=== PATIENT | male | born 1975 | race Caucasian/White ===

== ENCOUNTER 2017-09-24 20:33 | Inpatient (IN) | payer OTHER ==
[~2017-09-24] VITALS: Ht 172.7 cm; Wt 113.6 kg
[~2017-09-24 20:33] MED LIST: AMOXICILLIN500 M3 PO; ATIVAN1 MG PO; BENTYL20 MG PO; CIPRODEX OTIC7.5 ML OT; CLEOCIN HCL300 MG PO; CLONIDINE HCL0.1 MG PO; DEBROX15 ML OTIC; METHADONE10 MG/5 ML PO; METHADONE5 MG PO; MOTRIN800 MG PO; MOVANTIK25 MG PO; NICORELIEF2 MG PO; OXYCODONE HCL10 M2 PO; PERCOCET 325 MG1 TA2 PO; PRILOSEC OTC20 MG PO; TRAZODONE HCL50 M1 PO; XANAX0.5 MG PO; XANAX2 MG PO; ZOFRAN ODT4 MG PO
--- NOTE | 2017-09-24 21:15 | ED PSYCHIATRIC COMPLAINT ---
See Addendum History of Present Illness General Chief Complaint: Psychiatric Related Complaint Stated Complaint: DEPRESSION,+SI Source: patient, old records Exam Limitations: no limitations Vital Signs & Intake/Output Vital Signs & Intake/Output Vital Signs Date Time Temp Pulse Resp B/P B/P Pulse O2 O2 Flow FiO2 Mean Ox Delivery Rate 09/25 0310 97.0 85 16 100/66 95 09/25 0005 96.8 86 16 105/68 95 09/24 2047 95.5 90 18 103/71 96 Room Air ED Intake and Output 09/25 0000 09/24 1200 Intake Total 120 Output Total Balance 120 Intake, Oral 120 Patient 250 lb Weight Weight Reported by Patient Measurement Method Allergies Coded Allergies: NO KNOWN ALLERGIES (11/09/15) Reconcile Medications Clonidine HCl 0.1 MG TABLET 2 TAB PO Q8 OPIATE WITHDRAWAL 2 TAB PO 3X/DAY FOR 1 DAY THEN 1 TAB PO 3X/DAY FOR 1 DAY Clonidine HCl 0.1 MG TABLET 0.1 MG PO SEE ADMIN CRITERIA opiate withdrawal 1 po tid x 2 days then 1 po bid x 2 days then 1 po daily x 2 days then off. Nicotine (Nicorelief) 2 MG GUM 2 MG PO Q2P PRN nicotine craving Oxycodone HCl 10 MG TABLET 10 MG PO Q6-PRN PRN PAIN SCALE 7-10 (SEVERE) Trazodone HCl 50 MG TABLET 50 MG PO AT BEDTIME PRN INSOMNIA Triage Note: PT FROM HOME C/O +SI PER PT. PT STATES THAT A LOT HAS BEEN HAPPENING IN HIS LIFE CURRENTLY, PT IS ON WORK COMP AND WOULD LIKE TO WORK, BEGAN METHADONE 1 WEEKS PRIOR AND EVER SINCE BEING ON METHADONE PT FEELS DEPRESSED AND +SI WITH CRAZY THOUGHTS PER PT. PT STATES HE HAS BEEN OFF METHADONE FOR 2 DAYS AND WOULD LIKE TO BE OFF PERMANENTLY. PT STATES THAT "I PLANNED TO JUMP OFF A BRIDGE, I REALLY DONT LIKE TO DISCUSS IT THERE ARE MANY THINGS I WOULD DO TO HARM MYSELF" "I HAVE BEEN HERE BEFORE FOR THE HELP AND LAST TIME I LEFT, I THINK THINK THIS TIME I NEED MEDICATION AND HELP" PTS VSS. Triage Nurses Notes Reviewed? yes Onset: Just prior to arrival Duration: constant, continues in ED, getting worse Timing: recent history Severity: moderate, severe Associated Symptoms: anxiety, impaired concentration, suicidal ideation HPI: Over the last week the patient reports increasing anxiety depression sadness insomnia anorexia with thoughts of suicide. He admits to methadone use and sniffing heroin. He does not feel safe at home. He denies fever chills nausea vomiting diarrhea abdominal pain chest pain shortness breath headache dysuria rash bleeding homicidal ideation hallucination. (Nirav Carney MD) Past History Travel History Traveled to [place] past 21 day No Medical History Any Pertinent Medical History? 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 History of MRSA: No History of VRE: No History of CDIFF: No Isolation History: Standard Surgical History Surgical History: 01/30 RT LEG/PRIOR LT ANKLE ORTHOPEDIC SURGERY he has had right knee arthroscopic surgery and left ankle surgery in 2002 (right knee arthroscopy ) Psychosocial History Who do you live with Patient/Self Services at Home None What is your primary language Greek Tobacco Use: Current Daily Use Daily Tobacco Use Amount/Type: => 5 Cigarettes daily ETOH Use: denies use Illicit Drug Use: denies illicit drug use Family History Family History, If Any: FATHER (PROSTATE CANCER). . MOTHER (BREAST CANCER). . Relation not specified for: FH: breast cancer FH: HTN (hypertension) Hx Contributory? No (Nirav Carney MD) Review of Systems Review of Systems Constitutional: Reports: no symptoms. EENTM: Reports: no symptoms. Respiratory: Reports: no symptoms. Cardiovascular: Reports: no symptoms. GI: Reports: no symptoms. Genitourinary: Reports: no symptoms. Musculoskeletal: Reports: no symptoms. Skin: Reports: no symptoms. Neurological/Psychological: Reports: see HPI, anxiety, depressed. Hematologic/Endocrine: Reports: no symptoms. Immunologic/Allergic: Reports: no symptoms. All Other Systems: Reviewed and Negative (Nirav Carney MD) Physical Exam Physical Exam General Appearance: well developed/nourished, alert, awake, anxious, mild distress, obese Head: atraumatic, normal appearance Eyes: Bilateral: normal appearance, PERRL, EOMI. Ears, Nose, Throat: normal pharynx, normal ENT inspection, hearing grossly normal Neck: normal inspection, supple, full range of motion, no midline tenderness Respiratory: normal breath sounds Cardiovascular: regular rate/rhythm Gastrointestinal: soft, non-tender Extremities: normal range of motion Neurological/Psychiatric: no motor/sensory deficits, awake, agitated, alert, anxious, penal officer II-XII nml as tested, depressed affect, oriented x 3 Appearance/Memory/Insight: impaired insight Behavoir/Eye Contact/Speech: cooperative, normal speech Thoughts/Hallucinations: no apparent hallucination Skin: intact, normal color, warm/dry SAD PERSONS SAD PERSONS Response Value Male Sex? yes 1 Depression/Hopelessness? yes 2 Previous Attempts/Psych Care yes 1 Excessive Ethanol/Drug Use? yes 1 Rational Thinking Loss? yes 2 Single//? yes 1 Social Support? has support 0 Stated Future Intent? yes 2 Total 10 SAD PERSONS Done? yes (Angelika NUNN,Nirav) Progress Differential Diagnosis: drug intoxication, drug overdose, drug withdrawal, electrolyte abnormality, hypoglycemia Plan of Care: Orders Procedure Date/time Status Regular Diet 09/25 B Active Continuous Observation Monitor 09/25 0440 Active Continuous Observation Monitor 09/25 0040 Active Continuous Observation Monitor 09/24 2044 Active URINE DRUG SCREEN FOR ER ONLY 09/24 2044 Complete URINALYSIS 09/24 2044 Complete ETHANOL 09/24 2044 Complete COMPREHENSIVE METABOLIC PANEL 09/24 2044 Complete CBC WITHOUT DIFFERENTIAL 09/24 2044 Complete ED CRISIS PSYCH CONSULT 09/24 2044 Active Current Medications Sig/Mallorie Start time Last Medication Dose Stop Time Status Admin Trazodone HCl 50 MG AT BEDTIME 09/25 2100 UNVr (Desyrel) Alprazolam 1 MG BID PRN 09/24 2345 UNVr 09/24 (Xanax) 10/01 234 2344 Clonidine 0.1 MG TID 09/24 2328 UNVr 09/24 (Catapres) 2344 Gabapentin 300 MG Q8 09/25 2327 UNVr 09/25 (Neurontin) 0630 Laboratory Tests 09/24/172124: Serum Alcohol < 10.0 09/24/172124: Anion Gap 14, Estimated GFR > 60, BUN/Creatinine Ratio 20.0, Glucose 105 H, Calcium 9.6, Total Bilirubin 0.4, AST 15 L, ALT 28, Alkaline Phosphatase 78, Total Protein 7.3, Albumin 4.5, Globulin 2.8, Albumin/Globulin Ratio 1.6, CBC w Diff NO MAN DIFF REQ, RBC 5.13, MCV 87.4, MCH 29.9, MCHC 34.2, RDW 14.1, MPV 9.6 , Gran % 56.7, Lymphocytes % 35.6, Monocytes % 5.3, Eosinophils % 1.7, Basophils % 0.7, Absolute Granulocytes 6.4, Absolute Lymphocytes 4.0 H, Absolute Monocytes 0.6, Absolute Eosinophils 0.2, Absolute Basophils 0.1, Urine Opiates Screen > 4000.00 H, Methadone Screen > 735 H, Barbiturate Screen < 60, Ur Phencyclidine Scrn < 6.00, Amphetamines Screen 107, U Benzodiazepines Scrn < 85, Urine Cocaine Screen < 50, Urine Cannabis Screen 6.10, Urine Color YEL, Urine Clarity CLEAR, Urine pH 6.0, Ur Specific [place] >= 1.030, Urine Protein NEG, Urine Ketones NEG, Urine Nitrite NEG, Urine Bilirubin NEG, Urine Urobilinogen 0.2, Ur Leukocyte Esterase NEG, Ur Microscopic EXAM NOT REQUIRED, Urine Hemoglobin NEG, Urine Glucose NEG Hand-Off Endorsed To: Diane NUNN,Chris Marcos Endorsed Time: 0700 Pending: consult (Nirav Carney MD) Comments: 09/25/2017 7:32:25 AM patient signed out to me by Dr. Carney at shift change consultant. (Diane NUNN,Chris Marcos) Departure Departure Disposition: STILL A PATIENT Condition: Stable Clinical Impression Primary Impression: Depression with suicidal ideation Secondary Impressions: Opiate abuse, continuous Referrals: Patient Has No Primary Care Dr (PCP/Family) Departure Forms: Customer Survey General Discharge Information (Nirav Carney MD)
[2017-09-24 21:34] LABS: ABSOLUTE BASOPHIL COUNT 0.1 /CUMM (0.0-0.2); ABSOLUTE EOSINOPHIL COUNT 0.2 /CUMM (0.0-0.7); ABSOLUTE GRANULOCYTE CT 6.4 /CUMM (1.4-6.5); ABSOLUTE MONOCYTE COUNT 0.6 /CUMM (0.10-0.60); BASOPHIL % 0.7 % (0.0-2.0); EOSINOPHIL % 1.7 % (0-5); GRANULOCYTE % 56.7 % (42.2-75.2); HEMATOCRIT 44.8 % (42-52); MEAN CORPUSCULAR HGB 29.9 PG (27.0-31.0); MEAN CORPUSCULAR HGB CONC 34.2 G/DL (33.0-37.0); MEAN CORPUSCULAR VOLUME 87.4 FL (80.0-94.0); MEAN PLATELET VOLUME 9.6 FL (7.4-10.4); PLATELET COUNT 221 /CUMM (130-400); RBC DISTRIBUTION WIDTH 14.1 % (11.5-14.5); RED BLOOD CELL CT 5.13 /CUMM (4.70-6.10); WHITE BLOOD CELL COUNT 11.4 /CUMM (4.8-10.8)
--- NOTE | 2017-09-25 10:09 | ED PSYCH CRISIS CONSULTATION ---
See Addendum Crisis Consult Basic Assessment Date of Consult: 09/25/17 Responsible Person/Accompanied By: self Insurance Authorization: Insurance #1: Insurance name: STEFANIA ELLSWORTH Phone number: Policy number: [id number] Group number: Authorization number: ED Provider: Patient's ED Provider: Nirav Carney MD Primary Care Physician: Patient's PCP: Patient Has No Primary Care Dr PCP's Phone Number: Current Psychiatrist: Provider in [place], unsure of name Chief Complaint: Psychiatric Related Complaint Patient's Quote: "Best way to end my problems is to end it." Present Illness: The pt is a single 41yo male brought in by a friend from due to depression, SI and heroin use. The pt presents alert, oriented, calm and cooperative with goal directed speech. The pt reports SI with intent to jump off a bridge near his apartment. The pt stated the best way to end all my problems is to end it. The pt reports a decrease in sleep, poor appetite and poor concentration. The pt denies HI, AH and VH. The pts toxicology screen is positive for methadone and opiates. The pt reports he was prescribed methadone by [facility] approximately 1 week ago but took his last dose 3 days ago. The pt stated he wants to come off all of his medication. The pt stated once he started the methadone his thoughts changes and he became suicidal. The pt also reports he continued to use heroin while taking the methadone. The pt stated he has been snorting 1-2 bundles per day. The pt is requesting inpatient admission. C-SSRS completed and placed in the pt's chart. The pt was discharged from [facility] 04/2017 after treatment for depression with SI. The pt stated after discharge he continued in and started seeing a provider 1x per month in [place]. The pt does not know the providers name and stated she is either a psychiatrist or EMBOSSING TOOLSETTER. The pt reports this provider prescribed him Xanax for anxiety. The pt reports he does not take the Xanax consistently and last took it approximately 1 month ago. The pt was last evaluated by [facility]rell Addison on 08/17/17 initially presenting with SI which he later recanted. The pt was discharged with information on outpatient resources. The pt reports he lives by himself and is alone most of each day. The pt reports a positive relationship with his children (ages 15 and 7) and their mother. The pt stated he has a long hx of Opiate use but was clean for 2 years before an injury at work January 2017. The pt reports he fell into a tank and broke his leg and ankle which required surgery. The pt stated he still cannot walk well and has significant pain from the injury. Pt's current presentation and hx discussed with Dr. Contreras, plan is for hospitalization. Pt stated he is in agreement with this plan. Pt aware no beds currently available at [facility], pt requested to not be transferred to another hospital. Patient's Address: [address] [place] [id number] Other Phone Number: Who Do You Live With? Patient/Self Family/Informants Interviewed: no family/collateral ID'd Allergies - Coded Allergies: NO KNOWN ALLERGIES (11/09/15) Current Medications - Scheduled Medications Clonidine HCl 0.1 MG TABLET 2 TAB PO Q8 OPIATE WITHDRAWAL #9 TAB Prescribed by Chris Contreras MD on 08/31/17 Clonidine HCl 0.1 MG TABLET 0.1 MG PO SEE ADMIN CRITERIA opiate withdrawal #12 TAB Prescribed by Chandler Baugh MD on 05/02/17 Scheduled PRN Medications Nicotine (Nicorelief) 2 MG GUM 2 MG PO Q2P PRN nicotine craving #100 GUM Prescribed by Chandler Baugh MD on 05/02/17 Oxycodone HCl 10 MG TABLET 10 MG PO Q6-PRN PRN PAIN SCALE 7-10 (SEVERE) #12 TAB Prescribed by Chandler Baugh MD on 05/02/17 Trazodone HCl 50 MG TABLET 50 MG PO AT BEDTIME PRN INSOMNIA #14 TAB Prescribed by Chandler Baugh MD on 05/02/17 Laboratory Results: Laboratory Tests 09/24/172124: Serum Alcohol < 10.0 09/24/172124: Anion Gap 14, Estimated GFR > 60, BUN/Creatinine Ratio 20.0, Glucose 105 H, Calcium 9.6, Total Bilirubin 0.4, AST 15 L, ALT 28, Alkaline Phosphatase 78, Total Protein 7.3, Albumin 4.5, Globulin 2.8, Albumin/Globulin Ratio 1.6, CBC w Diff NO MAN DIFF REQ, RBC 5.13, MCV 87.4, MCH 29.9, MCHC 34.2, RDW 14.1, MPV 9.6 , Gran % 56.7, Lymphocytes % 35.6, Monocytes % 5.3, Eosinophils % 1.7, Basophils % 0.7, Absolute Granulocytes 6.4, Absolute Lymphocytes 4.0 H, Absolute Monocytes 0.6, Absolute Eosinophils 0.2, Absolute Basophils 0.1, Urine Opiates Screen > 4000.00 H, Methadone Screen > 735 H, Barbiturate Screen < 60, Ur Phencyclidine Scrn < 6.00, Amphetamines Screen 107, U Benzodiazepines Scrn < 85, Urine Cocaine Screen < 50, Urine Cannabis Screen 6.10, Urine Color YEL, Urine Clarity CLEAR, Urine pH 6.0, Ur Specific [place] >= 1.030, Urine Protein NEG, Urine Ketones NEG, Urine Nitrite NEG, Urine Bilirubin NEG, Urine Urobilinogen 0.2, Ur Leukocyte Esterase NEG, Ur Microscopic EXAM NOT REQUIRED, Urine Hemoglobin NEG, Urine Glucose NEG Past History Past Medical History Neurological: NONE EENT: NONE Cardiovascular: hypertension Respiratory: NONE Gastrointestinal: pancreatitis Hepatic: NONE Renal: NONE Musculoskeletal: chronic back pain, disk herniation, H/O LT ANKLE SURG PAST Psychiatric: anxiety, depression, opioid dependence Endocrine: NONE Blood Disorders: NONE Cancer(s): NONE 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 Psychiatric Treatment History Psych Treatment Psychiatric Treatment Yes Inpatient Treatment Yes Outpatient Treatment Yes Location of Treatment [facility], unknown provider in [place]. Reason for Treatment depression, SI, Opiate Addiction Dates of Treatment [facility] 2017, [place] outpt provider [phone] Response to Treatment inconsistent Diagnosis by History: F32.9 Unspecified Depressive Disorder F41.9 Unspecified Anxiety D/O F11.20 Moderate Opiate Use D/O Substance Use/Abuse History Drug Use/Abuse Substances Used/Abused Yes Substance Used/Abused Heroin First Use pt reports in his "20's" Last Used 09/24/17 How much used/taken 1-2 bundles How often daily For how long long hx Route of use snort Substance Abuse Treatment Substance Abuse Treatment Past Substance Abuse TX Yes Inpatient Treatment Yes Outpatient Treatment Yes Location of Treatment [place] [facility], [facility] Reason for Treatment Opiate addiction Dates of Treatment long hx Response to Treatment inconsistent Current Mental Status Mental Status Orientation: Person, Place, Situation Affect: Sad Speech: WNL Neuro-vegetative: Anhedonia, Appetite Decreased, Concentration Poor, Energy Decreased, Helpless, Sleep Disturbance Appearance Appearance- Dress/Hygiene: appropriate Behaviors Thought Process: WNL Thought Content: WNL Memory: WNL Insight: Poor SI/HI Risk Assessment Past Suicidal Ideation/Attempts Yes Current Suicidal Ideation/Att Yes Past Homicidal Ideation/Att: No Current Homicidal Ideation/Attempts No Degree of Intent: Plan, States Intent Danger To: Self Gravely Disabled: Lack of Insight, Poor Impulse Control, Poor Judgment Risk Factors: access to lethal means, chronic/serious med cond., high anxiety/ distress, SA/MH hospitalized, substance abuse, poor impulse control, lack of outcome concern, lives alone, male, limited support Lethality Ratin PTSD Checklist PTSD Done? patient declined ED Management Sitter: Yes Restraints: No DSM5/PS Stressors/Medical Prob Diagnosis' (DSM 5, Stressors, Medical): F32.9 Unspecified Depressive Disorder F11.20 Opioid Use Disorder, Severe Current GAF: 29 Departure Disposition Psych Medical Clearance Date: 09/25/17 Medically Cleared at: 0800 Time Started: 0800 Time Ended: 844 Psychiatrist Consulted: Dr. Contreras Date Disposition Established: 09/25/17 Time Disposition Established: 944 Plan for Disposition - Modality: Bed Search Rationale for Disposition: Pt is a risk to himself and in need of hospitalization. Pt is in agreement with this plan. Type of IP Admission: Voluntary Referrals Patient Has No Primary Care Dr (PCP/Family)
[2017-09-25] MEDS ORDERED: ALPRAZOLAM1 M2 PO (15:00)
[2017-09-25] MEDS ORDERED: OXYCODONE-ACET1 EAC1 PO (15:01)
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
[2017-09-26 13:13] VITALS: BP 134/80
[2017-09-26 16:26] VITALS: BP 141/80
--- NOTE | 2017-09-26 19:57 | History & Physical ---
General Information and HPI MD Statement: I have seen and personally examined JV RODRIGES and documented this H&P. The patient is a 41 year old M who presented with a patient stated chief complaint of "best way to and my problems is to and". Source of Information: patient, family, old records Exam Limitations: unable to give history History of Present Illness: 41-year-old male was in the hospital for depression at the end of 2016, comes in with depression and suicidal ideations and he stated that a lot has been happening in my life, is on Workmen's Compensation would like to work again. Recently had his hardware taken out of his right ankle and still in pain. He began methadone a week ago and since then has been depressed and having suicidal ideations still in pain with his foot as been using heroine and suicidal ideations thinking of jumping off a bridge near his apartment, has not been sleeping well and his appetite is poor and has poor concentration Allergies/Medications Allergies: Coded Allergies: NO KNOWN ALLERGIES (NONE 09/26/17) Home Med list Alprazolam 1 MG TABLET 1 TAB PO BIDP PRN ANXIETY (Reported) Oxycodone HCl/Acetaminophen (Oxycodone-Acetaminophen 10-325) 10 MG-325 MG TABLET 1 TAB PO Q12H PRN PAIN (Reported) Compliance With Home Meds: UNKNOWN Past History Travel History Traveled to [place] past 21 day No Medical History Neurological: NONE EENT: NONE Cardiovascular: hypertension Respiratory: NONE Gastrointestinal: pancreatitis Hepatic: NONE Renal: NONE Musculoskeletal: chronic back pain, disk herniation, H/O LT ANKLE SURG PAST Psychiatric: anxiety, depression, opioid dependence Endocrine: NONE Blood Disorders: NONE Cancer(s): NONE PANEL MAKER/Reproductive: NONE Other Medical Hx: Hx facial otero. History of MRSA: No History of VRE: No History of CDIFF: No Isolation History: Standard Surgical History Surgical History: 01/30 RT LEG/PRIOR LT ANKLE ORTHOPEDIC SURGERY he has had right knee arthroscopic surgery and left ankle surgery in 2002 (right knee arthroscopy ) Past Family/Social History Family History Relations & Conditions if any FATHER (PROSTATE CANCER). . MOTHER (BREAST CANCER). . Relation not specified for: FH: breast cancer FH: HTN (hypertension) Psychosocial History Where do you live? Home Services at Home: None Primary Language: Arabic ETOH Use: denies use Illicit Drug Use: denies illicit drug use Functional Ability Ambulation: USING WHEELCHAIR AT PRESENT Review of Systems Review of Systems Constitutional: Reports: see HPI. Exam & Diagnostic Data Last 24 Hrs of Vital Signs/I&O Vital Signs Date Time Temp Pulse Resp B/P B/P Pulse O2 O2 Flow FiO2 Mean Ox Delivery Rate 09/26 1626 95 141/80 09/26 1458 98.6 75 14 134/80 09/26 1313 98.6 75 134/80 09/26 1232 98.1 70 14 114/75 99 Room Air 09/26 0933 68 120/80 09/26 0927 97.1 68 20 120/80 99 Room Air 09/26 0637 96.9 60 18 128/70 100 Room Air 09/25 2146 97.4 65 18 135/73 97 Room Air 09/25 2119 72 121/65 09/25 2016 98.3 81 16 114/69 97 Room Air Intake & Output 09/26 1600 09/26 0800 09/26 0000 Intake Total Output Total Balance Patient 250 lb Weight Physical Exam General Appearance Alert, Oriented X3, Cooperative, No Acute Distress Skin No Rashes, healing scar in the right ankle area. HEENT PERRLA, EOMI, Mucous Membr. moist/pink Neck Supple, No JVD, No thryomegaly, +2 Carotid Pulse wo Bruit, No LAD Lymphatic Axillary nl, Cervical nl Cardiovascular Regular Rate, No Murmurs Lungs Clear to Auscultation Abdomen Normal Bowel Sounds, Soft, No Tenderness, No Hepatospenomegaly, No Masses Neurological Exam Findings: Normal Speech, Strength at 5/5 X4 Ext, Normal Tone, Sensation Intact, Cranial Nerves 3-12 NL, walking with a walker. Cranial Nerves II through XII: Intact Extremities edema around the right ankle Vascular Normal Pulses Last 24 Hrs of Labs/Abram: Laboratory Tests 09/24/172124: Serum Alcohol < 10.0 09/24/172124: Anion Gap 14, Estimated GFR > 60, BUN/Creatinine Ratio 20.0, Glucose 105 H, Calcium 9.6, Total Bilirubin 0.4, AST 15 L, ALT 28, Alkaline Phosphatase 78, Total Protein 7.3, Albumin 4.5, Globulin 2.8, Albumin/Globulin Ratio 1.6, CBC w Diff NO MAN DIFF REQ, RBC 5.13, MCV 87.4, MCH 29.9, MCHC 34.2, RDW 14.1, MPV 9.6 , Gran % 56.7, Lymphocytes % 35.6, Monocytes % 5.3, Eosinophils % 1.7, Basophils % 0.7, Absolute Granulocytes 6.4, Absolute Lymphocytes 4.0 H, Absolute Monocytes 0.6, Absolute Eosinophils 0.2, Absolute Basophils 0.1, Urine Opiates Screen > 4000.00 H, Methadone Screen > 735 H, Barbiturate Screen < 60, Ur Phencyclidine Scrn < 6.00, Amphetamines Screen 107, U Benzodiazepines Scrn < 85, Urine Cocaine Screen < 50, Urine Cannabis Screen 6.10, Urine Color YEL, Urine Clarity CLEAR, Urine pH 6.0, Ur Specific [place] >= 1.030, Urine Protein NEG, Urine Ketones NEG, Urine Nitrite NEG, Urine Bilirubin NEG, Urine Urobilinogen 0.2, Ur Leukocyte Esterase NEG, Ur Microscopic EXAM NOT REQUIRED, Urine Hemoglobin NEG, Urine Glucose NEG Diagnostic Data ITS Data Unobtainable at this time Assessment/Plan As Ranked By This Provider Problem List: 1. Depression with suicidal ideation 2. Opiate abuse, continuous Miscellaneous Miscellaneous Documentation Attending Case Discussed With: Sonya NUNN,Enedelia Primary Care Physician: Patient Has No Primary Care Dr Patient sees these Specialists Psychiatry Level of Patient Care: ED Morin Consults Needed: Consulting Specialty: Psychiatry Consulting Physician: Enedelia Hassan MD Reason for Consult: decided ideations, depression opiate use
[2017-09-26 19:59] VITALS: BP 141/80
[2017-09-27 08:04] VITALS: BP 114/88
[2017-09-27 12:09] VITALS: BP 138/84
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
--- NOTE | 2017-09-27 13:45 | SOCIAL WORKER PROG NOTE PSYCH ---
Social Work Progress Note Progress Note Jared has been pressured to leave today, seeking me out constantly on the unit. Met with him after lunch. He reported that he made a mistake reporting what he said about being suicidal. He stated he said this when he felt he was being "conquered" by drugs. He said it always goes back to his addiction and he hates feeling hopeless, worthless, and ashamed due to the use of drugs. Admits to use of opioids and heroin since he had surgery 2 weeks ago. He said he came to the hospital when he started to feel withdrawal from going off Methadone. He got connected to [facility] for detox and then they recommended he go on Methadone. He said he was up to 45mg, but didn't want to be on it and started tapering off last week. His last dose at 25mg was last . He didn't show up at the methadone clinic on Tuesday or Tuesday and ended up here at [facility] the next day. Reports he feels no withdrawal today and feels stable enough to leave. He denies any thoughts of self harm. Got emotional talking about how his kids "hate" him and that it makes him sad. Doesn't get to spend much time with his 7 and 15 year old. He admitted to thoughts about using today. Talked about how he will work through those thoughts today. He said he wants to go to an AA meeting [facility] and focus on "playing the tape forward." Talked about how cravings will pass and he needs to work through by talking to people. States he is not going to use today. Missed his appt. yesterday with Dr. Magy Moore. He needs to reschedule this appt. He sees her in [place] and seems to like her. He continued to advocate to leave today. I told him I would discuss it with the team and get back to him. Talked with Dr. Contreras about discharge. We will proceed with a d/c for today. Dr. Contreras attempted to call Magy Pritchett APRN and needed to leave a voicemail. Jared may need to schedule his appt. on his own once discharged.
[2017-09-27] MEDS ORDERED: KLONOPIN1 M1 PO (13:47)
[2017-09-27] MEDS ORDERED: CLONIDINE HCL0.1 MG PO (13:47)
[2017-09-27] MEDS ORDERED: TRAZODONE HCL50 M1 PO (13:47)
[2017-09-27] MEDS ORDERED: GABAPENTIN300 M2 PO (13:47)
--- NOTE | 2017-09-27 13:55 | CPS PROVIDER INIT ASMT PSYCH ---
Psychiatric Admission [place] Manager's Note Reviewed: Yes Patient Seen and Examined: Yes Identifying Information: pt is a single 41yo male brought in by a friend from due to depression, SI and heroin use. Chief Complaint: The pt stated the best way to end all my problems is to end it. Reaction to Hospitalization: The patient wanted to leave as soon as he was admitted to the inpatient unit and he signed a three-day paper History of Present Illness Onset of Illness: pt is a single 41yo male brought in by a friend from due to depression, SI and heroin use. The pt presents alert, oriented, calm and cooperative with goal directed speech. The pt reports SI with intent to jump off a bridge near his apartment. The pt stated the best way to end all my problems is to end it. The pt reports a decrease in sleep, poor appetite and poor concentration. The pt denies HI, AH and VH. The pts toxicology screen is positive for methadone and opiates. The pt reports he was prescribed methadone by [facility] approximately 1 week ago but took his last dose 3 days ago. The pt stated he wants to come off all of his medication. The pt stated once he started the methadone his thoughts changes and he became suicidal. The pt also reports he continued to use heroin while taking the methadone. The pt stated he has been snorting 1-2 bundles per day. The pt is requesting inpatient admission. C-SSRS completed and placed in the pt's chart. The pt was discharged from [facility] 04/2017 after treatment for depression with SI. The pt stated after discharge he continued in and started seeing a provider 1x per month in [place]. Circumstances Leading to Admission: See above Problem(s) Justifying Need for Admission: See above Past Psychiatric History Past Diagnosis(es)- if any: Unspecified mood disorder, unspecified anxiety disorder, Opioid use disorder Past Precipitating Factors- if any: Relapse to substance use - Include inpatient and outpatient treatment Treatment History: The patient more recently has been with Magy Pritchett APRN In the past he was with care He also was inpatient at [facility] twice before and at [facility] in [place] twice History of Suicide Attempts or Gestures Patient denied any history of suicide attempts Substance Abuse History: Opioid use disorder he recently was on methadone but he took himself off of it about 3 days ago He smokes half a pack of cigarettes a day Allergies: Coded Allergies: NO KNOWN ALLERGIES (NONE 09/26/17) Home Med List: He to consider himself of the methadone about 3 days ago he reported that he was getting Xanax 1 mg twice daily from Magy Pritchett APRN - Include any medical condition(s) that may - impact the patient's recovery/remission Past Medical History: Work trauma (RLE + facial otero). Heartburn. CBP/neck issues. Hx HTN. Hx L ankle reconstruction. 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 History of MRSA: No History of VRE: No History of CDIFF: No Isolation History: Standard Surgical History Surgical History: left ankle ligament repair R KNEE- ORTHOSCOPIC Multiple surgeries R lower leg. Psychiatric Family/Social Hx Family History Psychiatric Illness: He denied family history of psychiatric illnesses Substance Use: MGF, PGF: alcohol. F: alcohol/drugs. Pat uncles alc/drugs. Suicides: He denied family history of suicides Social History Living Situation: He lives alone Significant Relationships (family/friends): Parents are . Has 4 sistsers. . Has 2 daughters, ages 14 and 6. Education: Patient finished high school and did some college but did not finish college Vocation/Occupation: Patient reported that he is employed at [employer] Legal: Reportedly had multiple arrests for nonviolent charges Healthly Behaviors Screening Tobacco Screening Tobacco Use from ED Docu: Current Daily Use Daily Tobacco Use Amount/Type: => 5 Cigarettes daily - If tobacco counseling indicated - the following topics are required. - #1 Recognizing dangerous situations. - #2 Coping Skills. - #3 Basic information about quitting. Status of Tobacco Cessation Counseling: #1, #2 AND #3 Completed Cessation Med Status Pt Refused Cessation Meds Alcohol Screening - ETOH screen POS if BAL >=80 or Audit-C>= M4/F3 Audit-C Score from Diag Assess: 2 Blood Alcohol Level: Laboratory Tests 09/245 Toxicology Serum Alcohol (<10 MG/DL) < 10.0 Alcohol Use Screening Results: Neg per Audit C &/or BAL - If ETOH counseling indicated - the following topics are required. - #1 Express concern about the patient's - drinking at unhealthy levels, include informing - of national norms for moderate drinking: - men <= 14 drinks/week, max 4 drinks/occasion - women <= 7 drinks/week, max 3 drinks/occasion - #2 Providing feedback, including linking alcohol to - negative physical effects (liver injury, hypertension) - negative emotional effects (relationship problems and - depression) - negative occupational consequences (reduced work - performance) - #3 Advising the patient to abstain from alcohol or - to drink below national norms for moderate drinking - (as listed above). Status of ETOH Use Counseling: N/A B/C NO ETOH Use Metabolic Screening - Screen if on a Neuroleptic Medication - Metabolic screening should include: - Blood Pressure, BMI, Glucose or Hgb A1c, & a - Lipid profile from within the past 365 days. Metabolic Screening ([X]) Not Applicable, patient not on a neuroleptic. Exam and Plan Mental Status Examination Ambulation Status: The patient has a limp because of history of ankle surgery and right knee surgery Appearance: Unremarkable appearance Attitude towards examiner: Patient was calm and cooperative Psychomotor activity: Slightly increased psychomotor activity Behavior: Patient was focused on discharge from the moment he arrived on the unit yesterday afternoon Quality of speech: Patient is talkative with slight pressure Affect: Showed full range of affect Mood: Denied feeling depressed Suicidal Ideation: Denied thinking of suicide Homicidal Ideation: Denied thinking of homicide or violence Hallucinations: Denied hallucinations Paranoid/Delusional Material: Denied feeling paranoid, there were no delusions Difficulties with thought organization: Did not seem to have difficulties with thought organization, he was coherent. Insight: Poor insight. Judgment: Impaired judgment. Orientation: Alert and oriented to time, place, and person. Cognition: Seemed to have some difficulties with attention and concentration. Memory Function: Did not seem to have a gross impairment in memory. Estimate of intellectual functioning: Low average Assets/Strengths Patient Identified Assets/Strengths: The patient is employed, has a stable housing, and has provider for psychiatric care Impression/Plan Impression and Plan: 41-year-old white male who was admitted reportedly for voicing suicide in the context of heroin use. Since his arrival on the unit yesterday he was focused on discharge and felt that an inpatient psychiatric admission was not going to help him. He was focused on medications. Previous admission suggested that he has some sort of an unspecified depressive disorder but history of opioid and other substance use disorders. - Include all active medical diagnosis that require tx DSM 5 Diagnosis(es): Unspecified depressive disorder Unspecified anxiety disorder Opioid use disorder - Initial Tx Plan for Active Psych & Medical Conditions Treatment Plan: The patient wanted discharge since yesterday he met today with the social research assistant and met with him he afterwards and the plan was to discharge him home with a plan to continue his treatment with Magy Pritchett APRN. The patient did not want any referrals to substance abuse programs - Factors that would help patient function - in a less restrictive setting. Factors: The patient will be discharged today as he adamantly denied thoughts of suicide yesterday and today.
--- NOTE | 2017-09-27 13:57 | Patient Discharge Instructions ---
Psych Discharge Inst General Discharge Information Reason for Admission: "Best way to end my problems is to end it." Psy Discharge Primary Diag+ Unspecified Depressive DO Unspecified Anxiety DO Psy Discharge Secondary Diag+ Opioid Use Disorder Summary Tests/Major Procedures There were no significant lab abnormalities Studies Pending at DC: None Patient Instructions Contact Information Your Psychiatrist on [facility] was Ben NUNN,Lucien * If you are experiencing an emergency related to this hospitalization, please call [phone] to contact the treating psychiatrist or the psychiatrist-on- call. * To Request a copy of your medical records, please contact the Medical Records Department at [phone]. * To request results of studies pending at the time of discharge, please call [phone]. * Continue your Medications until directed to stop by your Healthcare provider. General Medication Information Please continue to take your new medications and your continued home medications , unless otherwise indicated on your discharge medication list, or unless directed by your MD or LAMINATING PRESS OPERATOR to stop them. Special Instructions Diet Regular Activity Normal - Tobacco Use Treatment Offered Post DC Medications Offered: Refused Tob Medication Tx Post DC Tobacco Treatment Plan: Refused Tobacco Tx Pgm - EtOH/Drug Use D/O Treatment Offered Post DC Medications Offered: Ref Med EtOH/Drug Use D/O Post DC EtOH/SubAbuse TX Plan: Refused Post DC Tx Pgm Metabolic Screening ([X]) Not Applicable, patient not on a neuroleptic. Advance Directives Does the Patient have Medical Advance Directives No/Refused further info Does Pt have Psychiatric Advance Directives? No/Refused further info Does Patient have a Designated Surrogate Decision Maker: No Information About Psychiatric Advance Directives Provided? Refused Discharge Plan Post Hospital Treatment Plan: Magy Pritchett APRN
[2017-09-27 14:00] VITALS: BP 138/84
--- NOTE | 2017-09-27 14:09 | DISCHARGE SUMMARY REPORT-PSYCH ---
Visit Information Visit Dates/Diagnosis' Admission Date: 09/26/17 Discharge Date: 09/27/17 Reason for Admission: "Best way to end my problems is to end it." Psy Discharge Primary Diag: Unspecified Depressive DO Unspecified Anxiety DO Psy Discharge Secondary Diag: Opioid Use Disorder Hospital Course Significant Lab Findings: No significant lab abnormalities Course Complications: No complications while the patient was on the inpatient psychiatric unit Consultations: Patient had a history and physical examination by the claims manager Allergies: Coded Allergies: NO KNOWN ALLERGIES (NONE 09/26/17) Hospital Course/TX Response: The patient stayed only 1 night on the inpatient psychiatric unit which is the ninth of the into 27 September. Please see the initial psychiatric diagnostic assessment dated today 09/27/2017 for further details Discharge HBIPS - Tobacco Use Treatment Offered Post DC Medications Offered: Refused Tob Medication Tx Post DC Tobacco Treatment Plan: Refused Tobacco Tx Pgm - EtOH/Drug Use D/O Treatment Offered Post DC Medications Offered: Ref Med EtOH/Drug Use D/O Post DC EtOH/SubAbuse TX Plan: Refused Post DC Tx Pgm Metabolic Screening - Screen if on a Neuroleptic Medication - Metabolic screening should include: - Blood Pressure, BMI, Glucose or Hgb A1c, & a - Lipid profile from within the past 365 days. Metabolic Screening ([X) Not Applicable, patient not on a neuroleptic. Discharge Instructions General Discharge Information Multiple Neuroleptics: ([X) Not Applicable Discharge Diet Regular Discharge Activity Normal DC Disposition: Home Referrals Ordered Referrals Provider Referral For Groups: [Magy Pritchett APRN] Patient will need to contact Magy Pritchett APRN at discharge to schedule next appt. since it could not be set up at time of discharge Magy Pritchett APRN [address] [place], [place] [phone] Prescriptions Stop taking the following medications: Alprazolam (Alprazolam) 1 MG TABLET ORAL 2 x Daily as needed as needed for ANXIETY Qty = 60 Oxycodone HCl/Acetaminophen (Oxycodone-Acetaminophen 10-325) 10 MG-325 MG TABLET ORAL Q12H as needed for PAIN Qty = 25 Start taking the following new medications: Clonidine HCl (Clonidine HCl) 0.1 MG TABLET 0.1 Milligram ORAL THREE TIMES DAILY Qty = 45 No Refills Gabapentin (Gabapentin) 300 MG CAPSULE 600 Milligram ORAL EVERY 4 HOURS NEEDED as needed for ANXIETY/INSOMNIA Qty = 60 No Refills Trazodone HCl (Trazodone HCl) 50 MG TABLET 50 Milligram ORAL AT BEDTIME Qty = 15 No Refills Clonazepam (Klonopin) 1 MG TABLET 1 Tablet ORAL 2 x Daily as needed as needed for anxiety Qty = 30 No Refills Studies Pending at Discharge None Copies To: Magy Pritchett APRN
--- NOTE | 2017-09-27 15:09 | SOCIAL WORKER PROG NOTE PSYCH ---
Social Work Progress Note Faxed Referral(s) Referred To: Magy Pritchett APRN Transition of Care Documents sent: Health Summary Faxed to: Magy Pritchett Fax #: [phone] Faxed by: Jacquie Joshua Date faxed: 09/27/17 Time Faxed: [phone]
== END 2017-09-27 14:29 | DRG 754 ==
LOC: ERH 20:33 → CP SOUTH 09-26 11:31 → ERHI 09-26 11:31 → ENTRNSPT 09-26 12:36 → EDTRNSPTSTS 09-26 12:50 → EDTRNSPT 09-26 12:50 → CP SOUTH 09-26 12:59 → CMPTRNSPT 09-26 13:00 → ENRESERV 09-26 23:59 → CP SOUTH 09-27 10:22
PROVIDERS: Physician Assistant Medical
DX: F32.9 Major depressive disorder, single episode, unspecified (principal); F41.9 Anxiety disorder, unspecified; F11.10 Opioid abuse, uncomplicated
CPT/HCPCS: 80307; 81003; G0463; G0480; J0515; J1630

== ENCOUNTER 2017-10-09 14:17 | Emergency (ER) | payer OTHER ==
[~2017-10-09] VITALS: Ht 172.7 cm; Wt 113.4 kg
[~2017-10-09 14:17] MED LIST changes: +ALPRAZOLAM1 M2 PO; +GABAPENTIN300 M2 PO; +KLONOPIN1 M1 PO; +OXYCODONE-ACET1 EAC1 PO
--- NOTE | 2017-10-09 14:27 | ED PSYCHIATRIC COMPLAINT ---
See Addendum History of Present Illness General Chief Complaint: Psychiatric Related Complaint Stated Complaint: "I NEED MY NEW MEDS ADJUSTED" Source: patient, old records Exam Limitations: no limitations Vital Signs & Intake/Output Vital Signs & Intake/Output Vital Signs Date Time Temp Pulse Resp B/P B/P Pulse O2 O2 Flow FiO2 Mean Ox Delivery Rate 10/10 1751 98.4 70 18 127/60 97 Room Air Room Air 10/10 1301 97.9 66 18 145/96 98 Room Air 10/10 1042 98.6 61 20 140/71 98 Room Air 10/10 0840 98.9 66 20 133/75 96 Room Air 10/10 0612 97.8 68 20 121/69 97 Room Air 10/10 0357 98.7 63 18 126/75 98 Room Air 10/09 2150 978.0 88 18 138/68 97 Room Air 10/09 1841 98.1 72 18 142/64 99 Room Air ED Intake and Output 10/10 0000 10/09 1200 Intake Total 0 Output Total 0 Balance 0 Intake, Oral 0 Output, Urine 0 Patient 250 lb Weight Weight Reported by Patient Measurement Method Allergies Coded Allergies: NO KNOWN ALLERGIES (NONE 09/26/17) Reconcile Medications Clonazepam (Klonopin) 1 MG TABLET 1 TAB PO BIDP PRN anxiety Clonidine HCl 0.1 MG TABLET 0.1 MG PO TID opioid withdrawal Gabapentin 300 MG CAPSULE 600 MG PO Q4P PRN ANXIETY/INSOMNIA Trazodone HCl 50 MG TABLET 50 MG PO AT BEDTIME insomnia Triage Note: PT REQUESTING HELP TO DETOX FROM PRESCRIBED MEDICATIONS AND HEROIN. REPORTS POSITIVE DEPRESSION WITH SUICIDAL THOUGHTS. DENIED FEELING HOMICIDAL. Triage Nurses Notes Reviewed? yes Onset: Abrupt Duration: day(s):, changing over time, continues in ED, getting worse Timing: recent history Severity: moderate, severe Associated Symptoms: anxiety, suicidal ideation HPI: 31-year-old male past medical history of anxiety, chronic back pain, depression, opioid abuse presents for evaluation of depression and suicidal ideation and opioid abuse. Patient states that he has been abusing opioids ever since he had surgery on his ankle. He states that his doctor cut him off from his opioid supply so he started to use heroin. He states that he last used heroin today states he does not use it every day but he wants help in stopping. He states that he feels that he does not want to live anymore due to his drug use. He has suicidal thoughts of jumping off a bridge. Denies any homicidal ideation. He denies any alcohol use no hallucinations. He does report that he is prescribed Xanax as needed but does not take it regularly at all. He states he'll need a couple times a month he denies any history of withdrawal seizures. (Deyvi Paz) Past History Travel History Traveled to [place] past 21 day No Medical History Any Pertinent Medical History? see below for history Neurological: NONE EENT: NONE Cardiovascular: hypertension Respiratory: NONE Gastrointestinal: pancreatitis Hepatic: NONE Renal: NONE Musculoskeletal: chronic back pain, disk herniation, H/O LT ANKLE SURG PAST Psychiatric: anxiety, depression, opioid dependence Endocrine: NONE Blood Disorders: NONE Cancer(s): NONE AUTOMATION/CONTROLS MANAGER/Reproductive: NONE Other Medical Hx: Hx facial otero. History of MRSA: No History of VRE: No History of CDIFF: No Surgical History Surgical History: 01/30 RT LEG/PRIOR LT ANKLE ORTHOPEDIC SURGERY he has had right knee arthroscopic surgery and left ankle surgery in 2002 (right knee arthroscopy ) Psychosocial History Who do you live with Patient/Self Services at Home None What is your primary language Algerian Tobacco Use: Current Daily Use Daily Tobacco Use Amount/Type: => 5 Cigarettes daily Family History Family History, If Any: FATHER (PROSTATE CANCER). . MOTHER (BREAST CANCER). . Relation not specified for: FH: breast cancer FH: HTN (hypertension) Hx Contributory? No (Deyvi Paz) Review of Systems Review of Systems Constitutional: Reports: no symptoms. EENTM: Reports: no symptoms. Respiratory: Reports: no symptoms. Cardiovascular: Reports: no symptoms. GI: Reports: no symptoms. Genitourinary: Reports: no symptoms. Musculoskeletal: Reports: no symptoms. Skin: Reports: no symptoms. Neurological/Psychological: Reports: see HPI, anxiety, depressed. Hematologic/Endocrine: Reports: no symptoms. Immunologic/Allergic: Reports: no symptoms. All Other Systems: Reviewed and Negative (Deyvi Paz) Physical Exam Physical Exam General Appearance: well developed/nourished, no apparent distress, alert, awake Head: atraumatic, normal appearance Eyes: Bilateral: normal appearance, PERRL, EOMI. Ears, Nose, Throat: normal pharynx, normal ENT inspection, hearing grossly normal Neck: normal inspection, supple, full range of motion Respiratory: normal breath sounds, chest non-tender, no respiratory distress, lungs clear Cardiovascular: regular rate/rhythm, normal peripheral pulses Gastrointestinal: normal bowel sounds, soft, non-tender, no organomegaly Extremities: normal range of motion Neurological/Psychiatric: no motor/sensory deficits, awake, alert, calm Appearance/Memory/Insight: appropriate appearance Behavoir/Eye Contact/Speech: cooperative, normal speech, good eye contact Thoughts/Hallucinations: normal thought pattern, no apparent hallucination Skin: intact, normal color, warm/dry SAD PERSONS SAD PERSONS Response Value Male Sex? yes 1 Depression/Hopelessness? yes 2 Previous Attempts/Psych Care yes 1 Excessive Ethanol/Drug Use? yes 1 Rational Thinking Loss? yes 2 Single//? yes 1 Organized/Serious Attempt yes 2 Social Support? has support 0 Total 10 SAD PERSONS Done? yes (Micky ADDISON,Deyvi) Progress Differential Diagnosis: dementia, drug intoxication, drug overdose, drug withdrawal, electrolyte abnormality Plan of Care: Orders Procedure Date/time Status Continuous Observation Monitor 10/10 1900 Active CIWA 10/10 1716 Active Continuous Observation Monitor 10/10 1500 Active Vital Signs 10/10 1141 Active Continuous Observation Monitor 10/10 1100 Active Continuous Observation Monitor 10/10 0700 Active Current Medications Sig/Mallorie Start time Last Medication Dose Stop Time Status Admin Clonazepam 1 MG BID 10/10 2100 CAN (Klonopin 1MG Tab) 10/17 2058 Trazodone HCl 100 MG AT BEDTIME 10/10 2100 UNVr (Desyrel) Benztropine Mesylate 1 MG Q6P PRN 10/10 171 UNVr (Cogentin 1 MG Tablet) Benztropine Mesylate 1 MG Q6P PRN 10/10 171 UNVr (Cogentin) Haloperidol 5 MG Q6P PRN 10/10 171 UNVr (Haldol) Haloperidol 5 MG Q6P PRN 10/10 171 UNVr (Haldol) Lorazepam 1 MG Q4H PRN 10/10 1714 UNVr (Ativan) Lorazepam 2 MG Q6P PRN 10/10 1714 UNVr (Ativan) Lorazepam 2 MG Q6P PRN 10/10 171 UNVr (Ativan) Oxycodone HCl 10 MG 4 TIMES/DAY 10/10 170 UNVr 10/10 (Roxicodone) 1710 Gabapentin 0 .STK-MED ONE 10/10 1616 CAN (Neurontin) Ibuprofen 600 MG Q6P PRN 10/10 1430 UNVr (Motrin) Clonidine 0.1 MG .[Q6H PRN] PRN 10/10 1145 UNVr 10/10 (Catapres) 1152 Dicyclomine HCl 20 MG .[Q12H PRN] PRN 10/10 1145 UNVr (Bentyl) Ibuprofen 600 MG Q6P PRN 10/10 1145 UNVr (Motrin) Loperamide HCl 2 MG Q6P PRN 10/10 1145 UNVr (Imodium) Ondansetron HCl 4 MG .[Q12H PRN] PRN 10/10 1145 UNVr (Zofran) Trazodone HCl 50 MG AT BEDTIME 10/09 2100 UNVr 10/10 (Desyrel) 0258 pt seen and evaluated. He is here with suicidal ideation and reporting that he wants help with drug use. He has a plan to jump off a bridge. He has a history of depression and anxiety in the past. Labs ordered patient placed into the scrubs will be seen by crisis. Blood work does not show any acute findings. Urine drug screen is positive for opioids. Patient requesting a dose of his Xanax. Patient will be held in the emergency department pending crisis evaluation. Patient signout to Dr. Sharif pending crisis. Labs do not show any acute findings. (Deyvi Paz) Hand-Off Endorsed To: Nirav Carney MD Endorsed Time: 07 Pending: consult (Chandler Sharif MD) Hand-Off Endorsed To: Chandler Sharif MD Endorsed Time: 1899 Pending: other (re-eval) (Nirav Carney MD) Departure Departure Disposition: STILL A PATIENT Condition: Stable Clinical Impression Primary Impression: Suicidal ideation Referrals: Patient Has No Primary Care Dr (PCP/Family) Departure Forms: Customer Survey General Discharge Information (Deyvi Paz) PA/ENVIRONMENTAL HEALTH OFFICER Co-Sign Statement Statement: ED Attending supervision documentation- [] I saw and evaluated the patient. I have also reviewed all the pertinent lab results and diagnostic results. I agree with the findings and the plan of care as documented in the PA's/ENVIRONMENTAL HEALTH OFFICER's documentation. x] I have reviewed the ED Record and agree with the PA's/ENVIRONMENTAL HEALTH OFFICER's documentation. [] Additions or exceptions (if any) to the PAs/ENVIRONMENTAL HEALTH OFFICER's note and plan are summarized below: [] (Kole NUNN,Chandler Sauceda)
[2017-10-09 15:04] LABS: ABSOLUTE BASOPHIL COUNT 0.1 /CUMM (0.0-0.2); ABSOLUTE EOSINOPHIL COUNT 0.1 /CUMM (0.0-0.7); ABSOLUTE GRANULOCYTE CT 5.2 /CUMM (1.4-6.5); ABSOLUTE LYMPH COUNT 2.9 /CUMM (1.2-3.4); ABSOLUTE MONOCYTE COUNT 0.6 /CUMM (0.10-0.60); EOSINOPHIL % 1.2 % (0-5); GRANULOCYTE % 58.4 % (42.2-75.2); HEMATOCRIT 41.1 % (42-52); MEAN CORPUSCULAR HGB 29.7 PG (27.0-31.0); MEAN CORPUSCULAR HGB CONC 33.8 G/DL (33.0-37.0); MEAN CORPUSCULAR VOLUME 87.8 FL (80.0-94.0); MEAN PLATELET VOLUME 9.5 FL (7.4-10.4); PLATELET COUNT 201 /CUMM (130-400); RBC DISTRIBUTION WIDTH 13.8 % (11.5-14.5); RED BLOOD CELL CT 4.68 /CUMM (4.70-6.10); WHITE BLOOD CELL COUNT 8.9 /CUMM (4.8-10.8)
--- NOTE | 2017-10-09 19:15 | ED PSYCH CRISIS CONSULTATION ---
See Addendum Crisis Consult Basic Assessment Date of Consult: 10/09/17 Responsible Person/Accompanied By: self Insurance Authorization: Insurance #1: Insurance name: STEFANIA ELLSWORTH Phone number: Policy number: [id number] Group number: Authorization number: ED Provider: Patient's ED Provider: Deyvi Paz Primary Care Physician: Patient's PCP: Patient Has No Primary Care Dr PCP's Phone Number: Current Psychiatrist: Dr. Magy Moore Chief Complaint: Psychiatric Related Complaint Patient's Quote: "I can't live like this I want to ." Present Illness: Pt is a 41yo male who was brought to the ED by his AA sponsor Adarsh Barron due to depression, SI with plan to jump off a bridge, and Heroin use. Pt was recently discharged from [facility] about 1.5 weeks ago. He expresses that he thinks he was not ready to be discharged and says he is ready to have a better attitude about his treatment, and would like to be readmitted to [facility]. He reports that he would like to have his psych meds re-evaluated as he thinks that they made him more depressed and too sedated. he states that as a result that he relapsed on heroin 2 days after his discharge from [facility] and has been snorting about 2 bags daily. Pt presents as depressed and tearful expressing that he can no longer live like this and wants to . He continues to state that he would jump off a bridge, but feels safe in the Hospital. He denies any HI or psychotic sx and denies any self harm or hx of suicide attempts. Pt is adamant about returning to [facility] and requests not to be sent anywhere else for his treatment. It was explained to pt that there are no beds available on [facility] and no beds elsewhere either. Therefore due to his active SI he will be held in the ED for the night and re-evaluated tomorrow morning and then he would be updated on the recommendation. Case reviewed with Dr. Hassan of Psychiatry who is in agreement with this plan. C-SSRS: Risk factors: wish to be , suicidal thoughts, suicidal intent with plan, previous psych dx, hopelessness, helplessness, major depressive episode, substance abuse dependence, chronic physical pain (Hx of Shattered leg), method for suicide available, unable to agree to safety plan Protective factors: Identifies reason for living (his children), Supportive network (his sponsor) Patient's Address: [address] [place] [id number] Other Phone Number: Who Do You Live With? Patient/Self Family/Informants Interviewed: message left for Adarsh Barron sponsor Allergies - Coded Allergies: NO KNOWN ALLERGIES (NONE 09/26/17) Current Medications - Scheduled Medications Clonidine HCl 0.1 MG TABLET 0.1 MG PO TID opioid withdrawal #45 TAB Prescribed by Lucien Contreras MD on 09/27/17 Trazodone HCl 50 MG TABLET 50 MG PO AT BEDTIME insomnia #15 TAB Prescribed by Lucien Contreras MD on 09/27/17 Scheduled PRN Medications Clonazepam (Klonopin) 1 MG TABLET 1 TAB PO BIDP PRN anxiety #30 TAB Prescribed by Lucien Contreras MD on 09/27/17 Gabapentin 300 MG CAPSULE 600 MG PO Q4P PRN ANXIETY/INSOMNIA #60 CAP Prescribed by Lucien Contreras MD on 09/27/17 Laboratory Results: Laboratory Tests 10/09/17 1456: Anion Gap 10, Estimated GFR > 60, BUN/Creatinine Ratio 12.2, Glucose 100 H, Calcium 9.1, Magnesium 1.9, Total Bilirubin 0.4, AST 16 L, ALT 31, Alkaline Phosphatase 73, Total Protein 6.3, Albumin 3.6, Globulin 2.7, Albumin/Globulin Ratio 1.3, CBC w Diff NO MAN DIFF REQ, RBC 4.68 L, MCV 87.8, MCH 29.7, MCHC 33.8, RDW 13.8, MPV 9.5, Gran % 58.4, Lymphocytes % 32.6, Monocytes % 6.8, Eosinophils % 1.2, Basophils % 1.0, Absolute Granulocytes 5.2, Absolute Lymphocytes 2.9, Absolute Monocytes 0.6, Absolute Eosinophils 0.1, Absolute Basophils 0.1, Serum Alcohol < 10.0 10/09/17 1450: Urine Opiates Screen > 4000.00 H, Methadone Screen 54, Barbiturate Screen < 60, Ur Phencyclidine Scrn < 6.00, Amphetamines Screen 112, U Benzodiazepines Scrn < 85, Urine Cocaine Screen 72, Urine Cannabis Screen 7.60, Urinalysis MOD H, Urine Color YEL, Urine Clarity HAZY H, Urine pH 6.0, Ur Specific Ford 1.020, Urine Protein NEG, Urine Ketones NEG, Urine Nitrite NEG, Urine Bilirubin NEG, Urine Urobilinogen 0.2, Ur Leukocyte Esterase NEG, Ur Microscopic SEDIMENT EXAMINED, Urine WBC RARE, Urine Mucus MANY H, Urine Hemoglobin NEG, Urine Glucose NEG Past History Past Medical History Neurological: NONE EENT: NONE Cardiovascular: hypertension Respiratory: NONE Gastrointestinal: pancreatitis Hepatic: NONE Renal: NONE Musculoskeletal: chronic back pain, disk herniation, H/O LT ANKLE SURG PAST Psychiatric: anxiety, depression, opioid dependence Endocrine: NONE Blood Disorders: NONE Cancer(s): NONE 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 Psychiatric Treatment History Psych Treatment Psychiatric Treatment Yes Inpatient Treatment Yes Outpatient Treatment Yes Location of Treatment [facility] Reason for Treatment depression Dates of Treatment 2014, 2016, 2018 Response to Treatment variable Diagnosis by History: F32.9 Unspecified Depressive Disorder F41.9 Unspecified Anxiety D/O F11.20 Moderate Opiate Use D/O Substance Use/Abuse History Drug Use/Abuse Substances Used/Abused Yes Substance Used/Abused Heroin First Use around age 18 Last Used this morning How much used/taken 2 bags How often daily For how long 1 week Route of use snort Substance Abuse Treatment Substance Abuse Treatment Past Substance Abuse TX Yes Inpatient Treatment Yes Outpatient Treatment Yes Location of Treatment [facility] Reason for Treatment Opiates Dates of Treatment multiple Response to Treatment variable Current Mental Status Mental Status Orientation: Person, Place, Situation Affect: Anxious, Depressed, Hopeless, Lonely, Sad Speech: Loud, Pressured Neuro-vegetative: Anhedonia, Concentration Poor, Energy Decreased, Helpless, Loss of Interest Appearance Appearance- Dress/Hygiene: fairly groomed, tearful Behaviors Thought Process: WNL Thought Content: WNL Memory: WNL Insight: WNL SI/HI Risk Assessment Past Suicidal Ideation/Attempts Yes Current Suicidal Ideation/Att Yes Past Homicidal Ideation/Att: No Current Homicidal Ideation/Attempts No Degree of Intent: Plan, States Intent Danger To: Self Risk Factors: high anxiety/distress, SA/MH hospitalized, substance abuse, lives alone, male, limited support Lethality Ratin PTSD Checklist PTSD Done? patient declined ED Management Sitter: Yes Restraints: No DSM5/PS Stressors/Medical Prob Diagnosis' (DSM 5, Stressors, Medical): F32.9 Unspecified Depression F11.20 Opiate Use Current GAF: 29 Departure Disposition Psych Medical Clearance Date: 10/09/17 Medically Cleared at: 1800 Time Started: 1800 Time Ended: 1899 Psychiatrist Consulted: Enedelia Hassan MD Date Disposition Established: 10/09/17 Time Disposition Established: 1899 Plan for Disposition - Modality: Inpatient Psychiatry Facility: bed search Rationale for Disposition: safety and stabilization Type of IP Admission: Voluntary Referrals Patient Has No Primary Care Dr (PCP/Family)
--- NOTE | 2017-10-10 23:26 | ED PSYCHIATRIST/APRN CONSULT ---
Psychiatrist/RIGGING FOREMAN ED Consult Assessment and Plan: Please see today's Crisis MD progress note in addendum to note started 10/09/2017 by CHANTEL Trujillo.
[2017-10-11 12:02] VITALS: BP 147/102
== END 2017-10-11 12:49 ==
LOC: ERH 14:17
PROVIDERS: Physician Assistant Medical
DX: R45.851 Suicidal ideations (principal); F11.10 Opioid abuse, uncomplicated; I10 Essential (primary) hypertension; K85.90 Acute pancreatitis without necrosis or infection, unspecified; F17.210 Nicotine dependence, cigarettes, uncomplicated
CPT/HCPCS: 80307; 81001; G0463; G0480

== ENCOUNTER 2017-10-16 14:43 | Emergency (ER) | payer OTHER | END 2017-10-16 15:03 | disposition admitted as inpatient to this hospital (09) | LOC: ERH 14:43 | DX: F32.89 Other specified depressive episodes (principal) ==

== ENCOUNTER 2017-10-26 12:03 | Inpatient (IN) | payer OTHER ==
[~2017-10-26] VITALS: Ht 172.7 cm; Wt 111.2 kg
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
[2017-10-26 13:21] LABS: ABSOLUTE BASOPHIL COUNT 0 /CUMM (0.0-0.2); ABSOLUTE EOSINOPHIL COUNT 0.1 /CUMM (0.0-0.7); ABSOLUTE GRANULOCYTE CT 8.2 /CUMM (1.4-6.5); ABSOLUTE LYMPH COUNT 3.4 /CUMM (1.2-3.4); ABSOLUTE MONOCYTE COUNT 0.5 /CUMM (0.10-0.60); BASOPHIL % 0.3 % (0.0-2.0); EOSINOPHIL % 0.5 % (0-5); HEMATOCRIT 41.6 % (42-52); MEAN CORPUSCULAR HGB 30.4 PG (27.0-31.0); MEAN CORPUSCULAR HGB CONC 34.6 G/DL (33.0-37.0); MEAN CORPUSCULAR VOLUME 87.8 FL (80.0-94.0); MEAN PLATELET VOLUME 9.6 FL (7.4-10.4); PLATELET COUNT 198 /CUMM (130-400); RBC DISTRIBUTION WIDTH 14.1 % (11.5-14.5); RED BLOOD CELL CT 4.73 /CUMM (4.70-6.10); WHITE BLOOD CELL COUNT 12.2 /CUMM (4.8-10.8)
[2017-10-26] MEDS ORDERED: GABAPENTIN600 M1 PO (16:42)
[2017-10-26] MEDS ORDERED: ALPRAZOLAM1 M2 PO (16:43)
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
--- NOTE | 2017-10-26 19:29 | ED PSY CRISIS COLLATERAL NOTE ---
Collateral Note Collateral Note Family/Inform/[place] Contacts: This clinician spoke with sponsor Adarsh Barron who reports the patient has been depressed with suicide ideation stating " I will jump in front of car". Adarsh reports the patient needs wto get help for his mental illness and reports bringing the patient to the hospital today.
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
[2017-10-27 15:59] VITALS: BP 151/97
[2017-10-27 20:08] VITALS: BP 138/96
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
[2017-10-28 07:41] VITALS: BP 132/90
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
[2017-10-28 13:39] VITALS: BP 130/80
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
[2017-10-28 16:00] VITALS: BP 130/69
--- NOTE | 2017-10-28 18:22 | Cons- General Surgery ---
General Information and HPI Consulting Request Date of Consult: 10/28/17 Requested By: Lucien Contreras MD Allergies/Medications Allergies: Coded Allergies: NO KNOWN ALLERGIES (NONE 09/26/17) Home Med List: Alprazolam 1 MG TABLET 1 TAB PO BIDP PRN ANXIETY (Reported) Clonidine HCl 0.1 MG TABLET 0.1 MG PO TID opioid withdrawal Gabapentin 600 MG TABLET 1 TAB PO 4 TIMES/DAY PRN ANXIETY (Reported) Trazodone HCl 50 MG TABLET 50 MG PO AT BEDTIME insomnia Past History Medical History Neurological: NONE EENT: NONE Cardiovascular: hypertension Respiratory: NONE Gastrointestinal: pancreatitis Hepatic: NONE Renal: NONE Musculoskeletal: 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 Surgical History Pertinent Surgical History: 01/30 RT LEG/PRIOR LT ANKLE ORTHOPEDIC SURGERY he has had right knee arthroscopic surgery and left ankle surgery in 2002 (right knee arthroscopy) Family History Relations & Conditions If Any: FATHER (PROSTATE CANCER). . MOTHER (BREAST CANCER). . Relation not specified for: FH: breast cancer FH: HTN (hypertension) Psychosocial History Where Do You Live? Home Services at Home: None Primary Language: Ivorian Functional Ability Ambulation: USING WHEELCHAIR AT PRESENT Exam & Diagnostic Data Vital Signs and I&O I rev Vital Signs Date Time Temp Pulse Resp B/P B/P Pulse O2 O2 Flow FiO2 Mean Ox Delivery Rate 10/28 1600 67 130/69 10/28 1339 66 130/80 10/28 0741 96.2 68 132/90 10/279 99.1 74 18 138/96 10/28 2007 99.1 74 138/96 Intake & Output 10/28 1600 10/28 0800 10/28 0000 10/27 1600 10/27 0800 10/27 0000 Intake Total Output Total Balance Patient 245 lb 250 lb Weight Last 24 Hours of Labs: I rev Assessment/Plan Consult Acknowledgment - Thank you for your consult request.
[2017-10-28 19:56] VITALS: BP 138/64
[2017-10-29 07:47] VITALS: BP 140/95
[2017-10-29 12:20] VITALS: BP 129/77
--- NOTE | 2017-10-29 15:09 | CP SOUTH PROGRESS NOTE PSYCH ---
Psych (Inpt) Progress Note Progress Note Include the following elements, when applicable: Involvement in the active treatment of the patient with behavioral observations of the patient and the patient's response to the treatment. Review of the ongoing treatment process in the context of the treatment plan. Indication of how multi-disciplinary staff members are carrying out the treatment plan. Plans for future interventions and recommendations for revision of the treatment plan. Liaison with other physicians/providers. Progress Note: Chart reviewed. Progress discussed with nursing staff. Interviewed patient this morning. Patient is remarkably perseverative about his methadone taper being "too fast". Pleads with this MD "well if you aren't going to give me more methadone at least give me some more benzos. Come on!" He was informed that the methadone taper is appropriate and he would not receive any increase in benzodiazepine dosing. His available PRNs were extensively reviewed. He reports that "I'm feeling so bad if I were out there I would just kill myself". He was unable to have a meaningful interaction aside from focusing on obtaining more controlled substances. Vitals and labs reviewed. Findings are: vitals wnl. No new labs. Mental status exam: Marginally groomed overweight CM dressed casually. Intense eye contact. Speech forceful. Mood "terrible". Affect constricted and irritable, TP perseverative, Content: focused on obtaining controlled substances. +SI without plan,denies HI. Denies percept distrubance. Cog grossly intact. I/J markedly limited. Assessment and plan: Continue methadone taper. Split xanax from 1 mg BID to .5 mg QAM + .5 mg Qlunch + 1 mg QHS. Continue to set clear boundaries regarding medications. Continue current management as per primary team.
[2017-10-29 19:56] VITALS: BP 146/83
[2017-10-30 07:37] VITALS: BP 144/91
--- NOTE | 2017-10-30 11:12 | CP SOUTH PROGRESS NOTE PSYCH ---
Psych (Inpt) Progress Note Progress Note Include the following elements, when applicable: Involvement in the active treatment of the patient with behavioral observations of the patient and the patient's response to the treatment. Review of the ongoing treatment process in the context of the treatment plan. Indication of how multi-disciplinary staff members are carrying out the treatment plan. Plans for future interventions and recommendations for revision of the treatment plan. Liaison with other physicians/providers. Progress Note: Chart reviewed. Progress discussed with nursing staff. Interviewed patient this morning. This morning much less demanding regarding being prescribed more methadone, however, again requests increase in benzo dose. Was educated on the high abuse potential of these medicines. Seemed to initally have difficulty understanding that just because an MD "out there" prescribes him benzos that indeed he should be able to take them ad hayder. Psychoeducation again was provided. We discussed the importance of building a repetoire of coping skills that do not involve pharmacology, to which, at least at the time, he was receptive. He denies SI/HI today and looks forward to a visit from his family. Vitals and labs reviewed. Findings are: vitals with mild htn, o/w wnl No new labs. Mental status exam: Well groomed (showered, well dressed) CM. Intense eye contact. Speech forceful. Mood "anxious but better than yesterday". Affect constricted and mildly labile/ irritable, TP perseverative, Content: remains focused on obtaining controlled substances. denies SI,denies HI. Denies percept distrubance. Cog grossly intact. I/J markedly limited. Assessment and plan: Continue methadone taper. Continue TID xanax dosing with total 24 hr dose of 2 mg. Continue to set clear boundaries regarding medications and psychoed regarding substance use disorders. Continue current management as per primary team.
[2017-10-30 12:05] VITALS: BP 126/73
[2017-10-30 15:58] VITALS: BP 146/97
[2017-10-30 19:55] VITALS: BP 142/93
[2017-10-31 07:41] VITALS: BP 140/80
[2017-10-31 07:44] VITALS: BP 140/80
--- NOTE | 2017-10-31 07:55 | CP SOUTH PROGRESS NOTE PSYCH ---
Psych (Inpt) Progress Note Progress Note I reviewed Dr. Headley's notes from the weekend of October 29 and 2017. I also reviewed Dr. Chandler Baugh MD's notes from last week. Treatment team (ACCOUNT ASSOCIATE, RN, OTR/L & Activities Therapist, Psychiatrist) discussed the Pt.'s progress, treatment plan, and aftercare plans. Vital Signs Date Time Temp Pulse Resp B/P 10/31 0744 97.5 77 18 140/80 10/31 0741 97.5 77 140/80 10/30 2028 97.5 89 18 142/93 10/30 1954 97.5 89 142/93 Mental status exam: Well groomed/well dressed, he has a litany of complaints about how he is being mistreated on the unit by staff. The patient is demanding and entitled, and he tends to be rude, and he uses the F word very frequently. He can be heard in the kitchen area in the common area to try it trying to get to the other patients to turn against staff. He reported that he wants to be discharged if possible today. Later on he came back and he was a little bit more forceful saying that he wants to be discharged as soon as his ride gets here. He has been denying thoughts of suicide over the weekend and today. He denied feeling hopeless or worthless. He really reports that he had an intake with [facility] and intends to do the intensive outpatient program. The patient's reliability is very low. He denied having any hallucinations or delusions, and there were no delusions during the interview. He seems to have poor attention and poor concentration and impulsivity and almost no ability to delay gratification. He denied having any violent thoughts or thoughts of homicide. Assessment: The patient is known to me from previous admissions. The patient is a 41-year- old white male who was admitted to the inpatient psychiatric unit on because of voicing thoughts of suicide in the context of relapsing to heroin. The patient has extensive substance abuse history but minimizes that. Today the patient reports that he is ready for discharge and reports that he is going to be doing intensive outpatient program with [facility]. The patient has been denying thoughts of suicide throughout the weekend and today. He reported that he feels much better and he is positive about his outlook on life. The patient' s reliability is very poor. I do not believe that he is at risk of deliberate self-harm, he will be chronically at risk of relapsing. Treatment Plan Update: Discharge home with plan to continue with intensive outpatient program at [facility] for his significant substance use issues. He most likely will continue treatment with the [facility] because he is pretty much focused on his Xanax.
--- NOTE | 2017-10-31 10:28 | Patient Discharge Instructions ---
Psych Discharge Inst General Discharge Information Reason for Admission: Psy Discharge Primary Diag+ Unspecified Depressive DO Psy Discharge Secondary Diag+ Opioid Use Disorder Sedative-Hypnotic Use DO Substance-Induced Mood DO Other Specified Pers. DO Summary Tests/Major Procedures Lab Urine Opiates Screen > 4000.00 NG/ML H 10/26/17 1635 Studies Pending at DC: None Patient Instructions Contact Information Your Psychiatrist on [facility] was Lucien Contreras MD * If you are experiencing an emergency related to this hospitalization, please call [phone] to contact the treating psychiatrist or the psychiatrist-on- call. * To Request a copy of your medical records, please contact the Medical Records Department at [phone]. * To request results of studies pending at the time of discharge, please call [phone]. * Continue your Medications until directed to stop by your Healthcare provider. General Medication Information Please continue to take your new medications and your continued home medications , unless otherwise indicated on your discharge medication list, or unless directed by your MD or WATCH ENGINEER to stop them. Special Instructions Diet Regular Activity Normal - Tobacco Use Treatment Offered Post DC Medications Offered: Script Given-See Med List Post DC Tobacco Treatment Plan: Refused Tobacco Tx Pgm - EtOH/Drug Use D/O Treatment Offered Post DC Medications Offered: Med Not Indicated for D/O Post DC EtOH/SubAbuse TX Plan: Other SubAbuse/Dual Pgm Metabolic Screening Not Applicable, patient not on a neuroleptic. Advance Directives Does the Patient have Medical Advance Directives No/Refused further info Does Pt have Psychiatric Advance Directives? No/Refused further info Does Patient have a Designated Surrogate Decision Maker: No Information About Psychiatric Advance Directives Provided? Refused Discharge Plan [facility]
[2017-10-31] MEDS ORDERED: CLONIDINE HCL0.1 MG PO (10:46)
[2017-10-31] MEDS ORDERED: NICORELIEF2 MG PO (10:46)
[2017-10-31] MEDS ORDERED: TRAZODONE HCL50 M1 PO (10:46)
[2017-10-31] MEDS ORDERED: GABAPENTIN600 M1 PO (10:46)
--- NOTE | 2017-10-31 11:02 | DISCHARGE SUMMARY REPORT-PSYCH ---
Visit Information Visit Dates/Diagnosis' Admission Date: 10/27/17 Discharge Date: 10/31/17 Reason for Admission: the best way to end all my problems is to end it. 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 DO Hospital Course Course Allergies: Coded Allergies: NO KNOWN ALLERGIES (NONE 09/26/17) Hospital Course/[place] Response: I reviewed Dr. Headley's notes from the weekend of October 29 and 2017. I also reviewed Dr. Chandler Baugh MD's notes from last week. Treatment team (CIRCULATOR, RN, OTR/L & Activities Therapist, Psychiatrist) discussed the Pt.'s progress, treatment plan, and aftercare plans. Vital Signs Date Time Temp Pulse Resp B/P 10/31 0744 97.5 77 18 140/80 10/31 0741 97.5 77 140/80 10/30 2028 97.5 89 18 142/93 10/30 195 97.5 89 142/93 Mental status exam: Well groomed/well dressed, he has a litany of complaints about how he is being mistreated on the unit by staff. The patient is demanding and entitled, and he tends to be rude, and he uses the F word very frequently. He can be heard in the kitchen area in the common area to try it trying to get to the other patients to turn against staff. He reported that he wants to be discharged if possible today. Later on he came back and he was a little bit more forceful saying that he wants to be discharged as soon as his ride gets here. He has been denying thoughts of suicide over the weekend and today. He denied feeling hopeless or worthless. He really reports that he had an intake with [facility] and intends to do the intensive outpatient program. The patient's reliability is very low. He denied having any hallucinations or delusions, and there were no delusions during the interview. He seems to have poor attention and poor concentration and impulsivity and almost no ability to delay gratification. He denied having any violent thoughts or thoughts of homicide. Assessment: The patient is known to me from previous admissions. The patient is a 41-year- old white male who was admitted to the inpatient psychiatric unit on because of voicing thoughts of suicide in the context of relapsing to heroin. The patient has extensive substance abuse history but minimizes that. Today the patient reports that he is ready for discharge and reports that he is going to be doing intensive outpatient program with [facility]. The patient has been denying thoughts of suicide throughout the weekend and today. He reported that he feels much better and he is positive about his outlook on life. The patient' s reliability is very poor. I do not believe that he is at risk of deliberate self-harm, he will be chronically at risk of relapsing. Treatment Plan Update: Discharge home with plan to continue with intensive outpatient program at [facility] for his significant substance use issues. He most likely will continue treatment with the [facility] OPER[facility] Magy Pritchett because he is pretty much focused on his Xanax. Discharge HBIPS - Tobacco Use Treatment Offered - EtOH/Drug Use D/O Treatment Offered Metabolic Screening - Screen if on a Neuroleptic Medication - Metabolic screening should include: - Blood Pressure, BMI, Glucose or Hgb A1c, & a - Lipid profile from within the past 365 days. Discharge Instructions General Discharge Information Discharge Diet Regular Discharge Activity Normal Referrals Ordered Referrals Provider Referral 10/31/17 For Groups: [[facility] Intensive Outpatient] [facility] Intensive Outpatient for mental health and substance use treatment Walk in hours: Tuesday, Tuesday, 12:30-3pm [address] [place] [address] Provider Referral 11/09/17 For Groups: Outpatient Psychiatry [facility] Sm[facility]essation [facility] 11/09/17 4pm [address] [place] [address] Prescriptions Continue taking these medications: Alprazolam (Alprazolam) 1 MG TABLET 1 Tablet ORAL 2 x Daily as needed as needed for ANXIETY Qty = 60 Comments: Last Taken:10/30/17 Time:8PM Clonidine HCl (Clonidine HCl) 0.1 MG TABLET 0.1 Milligram ORAL THREE TIMES DAILY Qty = 45 Comments: Last Taken:10/31/17 Time:8AM This prescription has been renewed Trazodone HCl (Trazodone HCl) 50 MG TABLET 50 Milligram ORAL AT BEDTIME Qty = 15 Comments: Last Taken:NOT USED IN THE HOSPITAL Time: This prescription has been renewed Start taking the following new medications: Nicotine (Nicorelief) 2 MG GUM 2 Milligram ORAL EVERY 2 HOURS NEEDED as needed for nicotine craving Qty = 60 No Refills Comments: Last Taken:10/29/17 Time:9PM The following medications have been changed: Old: Gabapentin (Gabapentin) 600 MG TABLET 1 Tablet ORAL 4 TIMES A DAY as needed for ANXIETY New: Gabapentin (Gabapentin) 600 MG TABLET 1 Tablet ORAL EVERY 6 HOURS NEEDED as needed for ANXIETY Qty = 60 Comments: Last Taken:10/29/17 Time:6AM Studies Pending at Discharge None
--- NOTE | 2017-10-31 11:03 | SOCIAL WORKER PROG NOTE PSYCH ---
Social Work Progress Note Progress Note Jared approached me in the [facility] several times this morning, telling me he was ready to leave today. He was very pressured to have me work on his d/c plan and to talk to the team about whether or not he could go today. I told him that this was a big change from last week when we spoke, but again indicative of his pattern. He has to be redirected several times, as I was also talking to other patients and he was interrupting. He told me he already shared his d/c plan with me last week. I told him [facility] will most likely not accept him due to being out of catchment area. He said he was referring to following up at [facility] in [place]. He reports he already had an intake there about a week/ week and a half ago and plans to go there for IOP. I told him that was his choice. At 10: 30 he told me his ride could be here in an hour. I told him that was fine.
--- NOTE | 2017-10-31 11:30 | SOCIAL WORKER PROG NOTE PSYCH ---
Social Work Progress Note Faxed Referral(s) Referred To: [facility] Intensive Outpatient Services Transition of Care Documents sent: Health Summary Faxed to: [facility] Fax #: [phone] Faxed by: Jacquie Joshua Date faxed: 10/31/17 Time Faxed: [phone]
== END 2017-10-31 11:11 | DRG 754 ==
LOC: ERH 12:03 → ERHI 10-27 13:16 → CP SOUTH 10-27 13:16 → ENTRNSPT 10-27 15:46 → EDTRNSPTSTS 10-27 15:48 → EDTRNSPT 10-27 15:48 → CP SOUTH 10-27 15:52 → CMPTRNSPT 10-27 16:14 → CP SOUTH 10-28 17:21
PROVIDERS: Physician Assistant Medical
DX: F32.9 Major depressive disorder, single episode, unspecified (principal); F11.90 Opioid use, unspecified, uncomplicated; F13.90 Sedative, hypnotic, or anxiolytic use, unspecified, uncomplicated; F19.94 Other psychoactive substance use, unspecified with psychoactive substance-induced mood disorder
CPT/HCPCS: 80307; G0463; G0480; J0515; J1630; J3101